=== PATIENT | female | born 1945 | race Caucasian/White ===

== ENCOUNTER → 2021-01-01 | Day surgery (SDC) | payer MEDICARE, BC ==
[2020-12-24 16:49] LABS: BASOPHILS # (AUTO) 0.1 X10'3 (0-0.2); BASOPHILS % (AUTO) 0.9 % (0-1); EOSINOPHILS # (AUTO) 0.4 X10'3 (0-0.9); EOSINOPHILS % (AUTO) 4.1 % (0-6); LYMPHOCYTES # (AUTO) 2.6 X10'3 (1.1-4.8); MEAN CORPUSCULAR VOLUME 90.9 FL (78-98); MEAN PLATELET VOLUME 10.9 FL (7.4-10.4); MONOCYTES # (AUTO) 0.6 X10'3 (0-0.9); MONOCYTES % (AUTO) 6.1 % (2-12); NEUTROPHILS % (AUTO) 61.9 % (42-75); PRE OP HEMATOCRIT 36.5 % (35.0-45.0); PRE OP HEMOGLOBIN 12.1 g/dL (12.0-16.0); PRE OP PLATELET COUNT 179 X10'3 (140-440); RED BLOOD COUNT 4.02 X10'6 (4.20-5.60); RED CELL DISTRIBUTION WIDTH 14.8 % (11.5-14.5)
[2020-12-24 17:02] LABS: ALBUMIN 3.2 G/DL (3.4-5.0); ALBUMIN/GLOBULIN RATIO 0.8 (1.1-1.5); ALKALINE PHOSPHATASE 93 IU/L (46-116); BLOOD UREA NITROGEN 33 MG/DL (7-18); BUN/CREATININE RATIO 28.2 (6.6-38.0); CALCIUM 9.7 MG/DL (8.5-10.1); CHLORIDE 108 MMOL/L (99-107); CREATININE 1.17 MG/DL (0.40-0.90); PRE OP ALT 27 U/L (30-65); PRE OP ANION GAP 8 (8-16); PRE OP AST 16 U/L (10-37); PRE OP BILIRUB, TOTAL 0.5 MG/DL (0.0-1.0); PRE OP GLUCOSE 129 MG/DL (70-104); PRE OP SODIUM 144 MMOL/L (135-145); TOTAL CARBON DIOXIDE 27.6 MMOL/L (24-32); eGFR 45 ML/MIN
[2020-12-24 17:29] LABS: PLATELET ESTIMATE NORMAL
[2020-12-24 17:30] LABS: LARGE PLATELETS FEW
[2021-01-01] VITALS (7 sets, daily range): BP systolic 165–212; BP diastolic 55–78
[~2021-01-01] VITALS: Ht 157.5 cm; Wt 88.0 kg
[~2021-01-01] MED LIST: ALEN70TA80 PO; ASPI-1264 PO; ATOR40TA72 PO; BUPIVAcaine/PF 2.5mg/ml (0.25%) 10ml vial ONE; CHOL200074 PO; DOCUMENT DATE & TIME OF BETA-BLOCKER PO ONE; FURO40TA4 PO; LANTUS SQ; LIDOcaine 0.5% (5mg/ml) 50ml vial ONE; METF-438 PO; METO-395 PO; POTA20TA19 PO; RAMI10CA69 PO; cefazolin/dext.iso 2gm/100ml IV ONE; famotidine 20mg tablet PO ONE; fentaNYL/PF 50MCG/1 ML 2ML syringe IV PRN; fentaNYL/PF 50MCG/1 ML 2ML syringe ONE; hydrALAZINE 20mg/ml inj. IV PRN; labetalol 20mg/4ml (5mg/ml) syringe IV PRN; morphine 2 MG/ML inj. syringe IV PRN; morphine 4 MG/ML inj SYRINge IV PRN; ondansetron/PF 4mg/2ml inj IV PRN; ringers solution, lacted 1,000 ML IV SCH
== END | disposition home or self-care (01) ==
LOC: PAS 06:43
PROVIDERS: ATTEND Orthopaedic Surgery Hand Surgery
DX: G56.01 Carpal tunnel syndrome, right upper limb (principal); I10 Essential (primary) hypertension; I25.10 Atherosclerotic heart disease of native coronary artery without angina pectoris; I48.91 Unspecified atrial fibrillation; E11.9 Type 2 diabetes mellitus without complications; Z86.73 Personal history of transient ischemic attack (TIA), and cerebral infarction without residual deficits; Z87.440 Personal history of urinary (tract) infections; Z90.49 Acquired absence of other specified parts of digestive tract; Z95.1 Presence of aortocoronary bypass graft; Z72.89 Other problems related to lifestyle; Z87.891 Personal history of nicotine dependence; Z79.84 Long term (current) use of oral hypoglycemic drugs; Z79.899 Other long term (current) drug therapy; Z88.8 Allergy status to other drugs, medicaments and biological substances; Z91.09 Other allergy status, other than to drugs and biological substances; Z95.2 Presence of prosthetic heart valve
CPT/HCPCS: 36415; 64721; 80053; 82948; 85025; 93005; J2001; J3010; J3490; 85008; A4215; J7120

== ENCOUNTER 2024-05-20 08:39 | Emergency (ER) | payer OTHER ==
[~2024-05-20] VITALS: Ht 157.5 cm; Wt 83.6 kg
[~2024-05-20 08:39] MED LIST changes: +ALLO100T PO; +AMLO5TAB16 PO; +APIX5TAB3 PO; -ASPI-1264 PO; -BUPIVAcaine/PF 2.5mg/ml (0.25%) 10ml vial ONE; +DAPA10TA PO; -DOCUMENT DATE & TIME OF BETA-BLOCKER PO ONE; +FERR159T2 PO; -LIDOcaine 0.5% (5mg/ml) 50ml vial ONE; +MULT-1085 PO; -POTA20TA19 PO; -RAMI10CA69 PO; +RAMI10CA78 PO; -cefazolin/dext.iso 2gm/100ml IV ONE; -famotidine 20mg tablet PO ONE; -fentaNYL/PF 50MCG/1 ML 2ML syringe IV PRN; -fentaNYL/PF 50MCG/1 ML 2ML syringe ONE; -hydrALAZINE 20mg/ml inj. IV PRN; -labetalol 20mg/4ml (5mg/ml) syringe IV PRN; -morphine 2 MG/ML inj. syringe IV PRN; -morphine 4 MG/ML inj SYRINge IV PRN; -ondansetron/PF 4mg/2ml inj IV PRN; -ringers solution, lacted 1,000 ML IV SCH
[2024-05-20 09:07] VITALS: TEMP 97.8
[2024-05-20] MEDS ORDERED: HYDR-3965 PO ×2 (10:05→10:06)
[2024-05-20] MEDS: acetaminophen 325mg tablet PO ONE (10:11)
[2024-05-20 10:14] VITALS: RESP 15
[2024-05-20] MEDS: HYDROcodone/acetaminophen 5mg/325mg tablet PO ONE (10:14)
[2024-05-20 11:42] VITALS: BP 151/53; PULSE 83; O2SAT 98
== END 2024-05-20 11:45 | disposition home or self-care (01) ==
LOC: ER 08:40
DX: S52.591A Other fractures of lower end of right radius, initial encounter for closed fracture (principal); S52.611A Displaced fracture of right ulna styloid process, initial encounter for closed fracture; R40.4 Transient alteration of awareness; Z91.09 Other allergy status, other than to drugs and biological substances; Z88.1 Allergy status to other antibiotic agents; Z79.899 Other long term (current) drug therapy; Z79.01 Long term (current) use of anticoagulants; W01.0XXA Fall on same level from slipping, tripping and stumbling without subsequent striking against object, initial encounter; Y93.01 Activity, walking, marching and hiking; Y92.89 Other specified places as the place of occurrence of the external cause; Y99.8 Other external cause status
CPT/HCPCS: 29125; 70450; 72125; 73070; 73100; 99284; A4565; A6258; A6449

== ENCOUNTER 2024-06-10 08:45 | Day surgery (SDC) | payer OTHER ==
[2024-06-07 12:14] LABS: BASOPHILS # (AUTO) 0.1 X10'3 (0-0.2); BASOPHILS % (AUTO) 1.4 % (0-1); EOSINOPHILS # (AUTO) 0.2 X10'3 (0-0.9); EOSINOPHILS % (AUTO) 3.5 % (0-6); LYMPHOCYTES # (AUTO) 1.6 X10'3 (1.1-4.8); MEAN CORPUSCULAR HEMOGLOBIN 29.8 PG (27.0-31.0); MEAN CORPUSCULAR HGB CONC 32.2 g/dL (33.0-36.5); MEAN CORPUSCULAR VOLUME 92.3 FL (78-98); MEAN PLATELET VOLUME 9.1 FL (7.4-10.4); MONOCYTES # (AUTO) 0.4 X10'3 (0-0.9); MONOCYTES % (AUTO) 6.2 % (2-12); NEUTROPHILS # (AUTO) 4.2 X10'3 (1.8-7.7); NEUTROPHILS % (AUTO) 64.9 % (42-75); PRE OP HEMATOCRIT 28.7 % (35.0-45.0); PRE OP PLATELET COUNT 227 X10'3 (140-440); PRE OP WHITE BLOOD COUNT 6.6 10'3 (4.8-10.8); RED BLOOD COUNT 3.11 X10'6 (4.20-5.60); RED CELL DISTRIBUTION WIDTH 15.9 % (11.5-14.5)
[2024-06-07 12:20] LABS: PRE OP HEMOGLOBIN 9.3 g/dL (12.0-16.0)
[2024-06-07 12:23] LABS: ALBUMIN 2.6 G/DL (3.4-5.0); ALBUMIN/GLOBULIN RATIO 0.7 (1.1-1.5); ALKALINE PHOSPHATASE 134 IU/L (46-116); BLOOD UREA NITROGEN 19 MG/DL (7-18); BUN/CREATININE RATIO 14.7 (10.0-20.0); CALCIUM 9.6 MG/DL (8.5-10.1); CHLORIDE 108 MMOL/L (99-107); CREATININE 1.29 MG/DL (0.40-0.90); PRE OP ALT 13 U/L (30-65); PRE OP ANION GAP 6 (8-16); PRE OP AST 21 U/L (10-37); PRE OP BILIRUB, TOTAL 0.6 MG/DL (0.0-1.0); PRE OP GLUCOSE 85 MG/DL (70-104); PRE OP SODIUM 142 MMOL/L (135-145); TOTAL CARBON DIOXIDE 28.1 MMOL/L (24-32); TOTAL PROTEIN 6.2 G/DL (6.4-8.2); eGFR 40 ML/MIN
[2024-06-09] MEDS: DOCUMENT DATE & TIME OF BETA-BLOCKER PO ONE (20:00)
[2024-06-10] VITALS (8 sets, daily range): BP systolic 139–169; BP diastolic 48–76; PULSE 68–84; RESP 12–24; TEMP 98.3; O2SAT 93–100
[~2024-06-10] VITALS: Ht 152.4 cm; Wt 79.8 kg
[2024-06-10] MEDS: famotidine 20mg tablet PO ONE (05:30)
[2024-06-10] MEDS: ceFAZolin 2gm in dextrose, iso 50 ML IV ONE (05:30)
[~2024-06-10 08:45] MED LIST changes: +BUPIVAcaine 2.5mg/ml inj 50ml vial (contains preservative) ONE; -CHOL200074 PO; -DAPA10TA PO; -FERR159T2 PO; +IRON; +LIDOcaine 2% (20mg/ml) 5ml vial ONE; -MULT-1085 PO; +MVI; -RAMI10CA78 PO; +VITAMIN D3; +ringers solution, lacted 1,000 ML IV SCH
[2024-06-10] MEDS ORDERED: labetalol 20mg/4ml (5mg/ml) syringe IV PRN ×2 (09:05→11:45)
[2024-06-10] MEDS ORDERED: morphine 2 MG/ML inj. syringe IV PRN (09:05)
[2024-06-10] MEDS ORDERED: ringers solution, lacted 1,000 ML IV SCH (09:05)
[2024-06-10] MEDS ORDERED: ondansetron/PF 4mg/2ml inj IV PRN (09:05)
[2024-06-10] MEDS ORDERED: morphine 4 MG/ML inj SYRINge IV PRN (09:05)
[2024-06-10] MEDS: CEFAZOLIN 2 GM injection IM ONE (09:20)
[2024-06-10] MEDS ORDERED: midazolam 1 mg/ML 2ml injection ONE (10:19)
[2024-06-10] MEDS ORDERED: ROPIVAcaine 0.5% (5mg/ml) 30ml vial ONE ×2 (10:19)
[2024-06-10] MEDS ORDERED: fentaNYL/PF 50MCG/1 ML 2ML syringe ONE (10:19)
[2024-06-10] MEDS ORDERED: sevoflurane 250ml liquid IH ONE (10:27)
[2024-06-10] MEDS ORDERED: acetaminophen 1,000mg/100ml IV 100 ML IV ONE (10:50)
[2024-06-10] MEDS ORDERED: labetalol 20mg/4ml (5mg/ml) syringe IV ONE (10:59)
== END 2024-06-10 12:30 | disposition home or self-care (01) ==
LOC: PAS 08:45
PROVIDERS: ATTEND Orthopaedic Surgery Hand Surgery
DX: S52.501A Unspecified fracture of the lower end of right radius, initial encounter for closed fracture (principal); G89.18 Other acute postprocedural pain; I13.0 Hypertensive heart and chronic kidney disease with heart failure and stage 1 through stage 4 chronic kidney disease, or unspecified chronic kidney disease; E11.22 Type 2 diabetes mellitus with diabetic chronic kidney disease; N18.9 Chronic kidney disease, unspecified; I50.30 Unspecified diastolic (congestive) heart failure; E11.51 Type 2 diabetes mellitus with diabetic peripheral angiopathy without gangrene; I25.10 Atherosclerotic heart disease of native coronary artery without angina pectoris; E78.5 Hyperlipidemia, unspecified; E66.9 Obesity, unspecified; E21.3 Hyperparathyroidism, unspecified; I48.91 Unspecified atrial fibrillation; M19.90 Unspecified osteoarthritis, unspecified site; Z87.891 Personal history of nicotine dependence; Z86.73 Personal history of transient ischemic attack (TIA), and cerebral infarction without residual deficits; Z87.440 Personal history of urinary (tract) infections; Z85.828 Personal history of other malignant neoplasm of skin; Z79.01 Long term (current) use of anticoagulants; Z79.84 Long term (current) use of oral hypoglycemic drugs; Z79.899 Other long term (current) drug therapy; Z90.49 Acquired absence of other specified parts of digestive tract; Z95.1 Presence of aortocoronary bypass graft; Z95.5 Presence of coronary angioplasty implant and graft; Z98.890 Other specified postprocedural states; Z68.34 Body mass index [BMI] 34.0-34.9, adult; Z88.8 Allergy status to other drugs, medicaments and biological substances; Z80.49 Family history of malignant neoplasm of other genital organs; X58.XXXA Exposure to other specified factors, initial encounter; Y93.89 Activity, other specified; Y92.89 Other specified places as the place of occurrence of the external cause; Y99.8 Other external cause status
CPT/HCPCS: 25607; 36415; 64417; 80053; 82948; 85025; C1713; J0131; J0690; J2250; J2405; J2704; J2795; J3010; J3490; J7030; J7120; Z7506; Z7508; Z7512; A4215; A4618; A6449; A7000